=== PATIENT | male | born 1985 | race African-American/Black ===

== ENCOUNTER 2022-09-16 15:00 | Emergency (ER) | payer OTHER, SELFPAY ==
[2022-09-16 15:03] VITALS: BP 110/65; PULSE 72; RESP 18; TEMP 35.8; O2SAT 94; BMI 31.0
--- NOTE | 2022-09-16 15:03 | ED.GENADULT ---
HPI - General Adult General Chief complaint: Eye Problems Stated complaint: eye problem? Time Seen by Provider: 09/16/22 15:35 Source: patient and family Mode of arrival: ambulatory Limitations: no limitations History of Present Illness HPI narrative: 37 yo male with no medical history presents to the ED for evaluation of right eye pain x 1 day. He reports he was play fighting with his girlfriend yesterday night when her ring scratched his eye and developed pain. He initially went to [facility] ED, but left due to the prolonged wait. He reports pain is worsening and sensitivity to light. He does not wear glasses or contacts. Tetanus is UTD per pt. He denies headache, dizziness, blurry vision, nausea, vomiting, SOB, or chest pain. MD complaint: right eye pain Onset (ago): day(s) (1) Related Data Previous Rx's Medication Instructions Recorded erythromycin 5 mg/gram (0.5 %) eye 0.5 inch ophthalmic (eye) QID 09/16/22 ointment corneal abrasion 7 days #3.5 grams ketorolac 0.4 % eye drops 1 drp ophthalmic (eye) Q6H 4 days 09/16/22 #5 mL Allergies Allergy/AdvReac Type Severity Reaction Status Date / Time No Known Allergies Allergy Verified 09/16/22 15:03 Review of Systems Review of Systems: Yes all other systems are reviewed and are negative Constitutional: Constitutional: Denies fatigue, Denies fever(s) and Denies headache(s) Eyes: Eyes: Denies blurry vision, Denies change in vision, Reports eye pain and Reports photophobia ENT: Denies dizziness and Denies headache(s) Cardiovascular: Cardiovascular: Denies chest pain and Denies dyspnea Respiratory: Respiratory: Denies cough and Denies dyspnea Gastrointestinal: Gastrointestinal: Denies nausea and Denies vomiting Musculoskeletal: Musculoskeletal: Reports no additional musculoskeletal complaints Integumentary/Breasts: Skin/Breast: Reports system reviewed and no additional complaints, except as docu Neurologic: Denies dizziness and Denies headache(s) Endocrine: Endocrine: Denies fatigue PMFSH Past Medical History Attestation statement: The following information was validated with the patient. Source: old records reviewed, obtained from family and nursing notes reviewed Social History Social History Advance Directives: No Advance Directives Information Provided: Yes Physical Exam ED Vital Signs: Vital Signs - 24 hr 09/16/22 15:03 09/16/22 16:49 Temperature 96.5 F L 98 F Pulse Rate 72 64 Respiratory Rate 18 18 Blood Pressure 110/65 113/61 Pulse Oximetry 94 98 Oxygen Delivery Method Room Air Room Air BMI result Body Mass Index 31.0 All vital signs are within normal limits Appearance: Alert. Oriented X3. Mildly in acute distress with inability to close eyes. Head: Normal external exam. Normocephalic. Atraumatic. No Garcia signs noted. No raccoon eyes noted Eyes: PERRL. EOMI bilaterally. Right conjunctiva and sclera injection noted. Conjunctivae and sclera normal in the left eye. Right corneal abrasion noted over the center of the pupil. Eyelids normal. No papilledema noted. Anterior chamber normal. +photophobia noted. Visual whiting intact bilaterally. No corrective lenses used. ENT: EAC normal. TM's Normal. Pharynx normal. Uvula midline. Moist mucous membranes. Neck: Normal inspection. Neck supple. FROM. No adenopathy. Thyroid Normal. No meningeal signs. No neck mass noted. CVS: Normal heart rate and rhythm. Heart sound normal. No murmurs noted. Pulses normal throughout. Respiratory: No respiratory distress. Painless inspiration. Breath sounds normal. Back: Full range of motion noted. Skin: Skin warm and dry. Normal skin color. Normal skin turgor. No rashes/lesions/lacerations noted. Extremities: No lower extremity edema. Extremities exhibit normal range of motion. Extremities nontender. Neuro: Oriented X 3. No motor deficit. No sensory deficit. Reflexes normal. HENMD Head: Yes normocephalic and Yes atraumatic Face and sinus: No ecchymosis and No erythema Eyes Other: On exam, there is no erythema or ecchymosis noted on inspection. There is tenderness to palpation over the right upper periorbital area. EOMI bilaterally. Visual whiting intact. Alignment and Position: alignment normal Eyelids: Yes eyelids normal Conjunctivae: conjunctival abnormal right conjunctival injection Sclerae: scleral abnormal left scleral injection Corneas: fluorescein used Pupils: Equal, round and reactive pupils present EOM: EOMs intact bilaterally Direct Ophthalmoscopy: photophobia Neuro Cranial nerves: Yes Equal, round and reactive pupils present Course Course Course Narrative: This is an RME: Additional HPI, ROS, PE not included below will be deferred to primary provider. This is a [id number], with no known medical history, presenting to the emergency department for evaluation of right eye pain, swelling. Patient states that he was ?messing around with his girlfriend? and her ring scratched his right eye. He admits to having increased swelling and pain to his right eye. No fevers or chills. Vital signs stable. Right eye with periorbital swelling and conjunctiva is injected. Plan: Needs eye examination in fast track. Reevaluation(s) Reevaluation #1: patient presenting with corneal abrasion. Not consistent with dendrite. Not consistent with globe rupture. Not consistent with foreign body. Not consistent with right no detachment. Not consistent with bacterial conjunctivitis. Will DC home with erythromycin ointment along with could Toradol drops and instructions to follow-up with PCP and Ophthalmology and to return if any new or worsening symptoms. Patient understands agrees with this plan. Time: 18:59 Medications Administered Discontinued Medications Generic Name Dose Route Start Last Admin Trade Name Parishq PRN Reason Stop Dose Admin Erythromycin 1 cm 09/16/22 15:55 09/16/22 15:58 Erythromycin Base 0.5% Oph Oin 1 Gm Tube EYE-BOTH 09/16/22 15:56 1 cm ONCE ONE Administration Fluorescein Sodium 1 strip 09/16/22 15:55 09/16/22 15:58 Fluorescein Sodium Strip EYE-BOTH 09/16/22 15:56 1 strip ONCE ONE Administration Tetracaine HCl 3 drop 09/16/22 15:55 09/16/22 15:58 Tetracaine Hcl/Pf 0.5% Oph Rachel 4 Ml Drops EYE-BOTH 09/16/22 15:56 3 drop ONCE ONE Administration Medical Decision Making Medical Decision Making MDM Narrative: see course Differential Diagnosis Differential Diagnoses: The differential diagnosis associated with the presentation includes see course Independent Historian Clinical information obtained from an independent historian. History obtained from or confirmed by: Spouse External Record Review External record reviewed: Inpatient record, Office record, Outpatient record, Prior outpatient labs, Prior outpatient radiology, Primary care record and Outside ED record All prior labs/imaging /EKG and notes that are in our system reviewed by myself Prescription Management I considered prescription management with: Pain Medication and Antibiotic Social Determinants Patient?s care significantly limited by Social Determinants of Health including: Low income and Other Social Determinant of Health Discharge Plan Discharge Clinical Impression: Corneal abrasion Patient Disposition: Home, Self-Care Instructions: Corneal Abrasion (DC) Prescriptions: New erythromycin 5 mg/gram (0.5 %) ointment 0.5 inch ophthalmic (eye) QID 7 Days Qty: 3.5 0RF ketorolac 0.4 % drops 1 drp ophthalmic (eye) Q6H 4 Days Qty: 5 0RF Referrals: Watson Ugarte [Physician] - ( call today to make a follow-up appointment within the next 2-3 days) Interventions: ED Discharge Assessment Last Done: 09/16/22 17:20 Discharge Date/Time: 09/16/22 17:20
[2022-09-16] MEDS: Fluorescein Sodium STRIP 1 STRIP EYE-BOTH (15:58)
[2022-09-16] MEDS: Erythromycin Base 0.5% Oph Oin 1 GM TUBE 1 CM EYE-BOTH (15:58)
[2022-09-16] MEDS: Tetracaine HCl/PF 0.5% Oph Sol 4 ML DROPS 3 DROP EYE-BOTH (15:58)
[2022-09-16 16:49] VITALS: BP 113/61; PULSE 64; RESP 18; TEMP 36.6; O2SAT 98
== END 2022-09-16 17:20 | disposition home or self-care (01) ==
PROVIDERS: Emergency Provider Emergency Medicine
DX: S05.01XA Injury of conjunctiva and corneal abrasion without foreign body, right eye, initial encounter (principal); X58.XXXA Exposure to other specified factors, initial encounter; Y93.83 Activity, rough housing and horseplay; Y92.9 Unspecified place or not applicable; Y99.9 Unspecified external cause status
CPT/HCPCS: 99282; 99283